=== PATIENT | male | born 1955 | race Caucasian/White ===

== ENCOUNTER 2020-08-04 18:49 | Observation (INO) | payer BC, SELFPAY ==
[2020-08-04] VITALS (23 sets, daily range): BP systolic 116–146; BP diastolic 59–111; PULSE 73–196; RESP 13–25; TEMP 36.3–36.7; O2SAT 94–100; BMI 31.4; BMI 34.3
--- NOTE | ~2020-08-04 | XR_ITS ---
EXAMINATION: XR chest 1V portable 08/04/2020 19:49 INDICATION: Chest pain and shortness of breath PROCEDURE: AP portable chest COMPARISON: No prior studies for comparison. FINDINGS: No focal pneumonia or edema. The cardiomediastinal silhouette is within normal limits. The re are no pleural effusions. There is no pneumothorax suspected. There is subsegmental atelectasis of the left mid and lower lung. IMPRESSION: 1: No subsegmental atelectasis left mid and lower lung. Reviewed, dictated and finalized at location A.
--- NOTE | 2020-08-04 18:50 | ECG_ITS ---
Measurements Intervals [place] Rate: 194 P: [place]: 0 QRS: -17 QRSD: 88 T: 28 QT: 221 QTc: 398 Interpretive Statements SUPRAVENTRICULAR TACHYCARDIA INCOMPLETE RIGHT BUNDLE BRANCH BLOCK BASELINE ARTIFACT- I, II, III, AVL, AVF ABNORMAL ECG Electronically Signed On 08-04-2020 20:04:27 CDT by Mik Jung D.O.
[2020-08-04] MEDS: ADENOSINE IV SOLN 6 MG/2 ML VIAL IV PUSH (19:08)
[2020-08-04] MEDS: ADENOSINE IV SOLN 6 MG/2 ML VIAL 12 MG IV PUSH (19:15)
--- NOTE | 2020-08-04 19:23 | ECG_ITS ---
Measurements Intervals [place] Rate: 99 P: 54 TN: 139 QRS: 4 QRSD: 88 T: 51 QT: 332 QTc: 428 Interpretive Statements SINUS RHYTHM EARLY PRECORDIAL R/S TRANSITION BORDERLINE ECG Electronically Signed On 08-04-2020 20:04:42 CDT by Mik Jung D.O.
--- NOTE | 2020-08-04 19:23 | ED.GENADULT ---
HPI - General Adult General Chief complaint: Chest Pain Stated complaint: think im having a heart attack Time Seen by Provider: 08/04/20 19:09 Source: RN notes reviewed History of Present Illness HPI narrative: Patient presents emergency department from home for feeling heart racing. Patient states symptoms began approximately 515 today. States that he had onset of feeling of his heart was racing with midsternal chest pressure and shortness of breath. He states the symptoms briefly resolved leave themselves and then came back again he denies any previous cardiac history he states he does have a history of hypertension is on metoprolol 50 mg twice a day and normally takes his evening dose around 9 or 10:00 denies any other symptoms at this time Related Data Allergies Allergy/AdvReac Type Severity Reaction Status Date / Time No Known Allergies Allergy Mild Unverified 06/11/08 17:41 Review of Systems Review of Systems: Narrative: Gen.: Denies fevers or chills ENT: Denies congestion Respiratory: Reports shortness of breath CV: See HPI GI: Denies abdominal pain nausea, emesis or diarrhea Musculoskeletal: Denies back pain or muscle pain Neuro: Denies numbness, tingling, weakness or focal weakness Skin: Denies rash Except as documented, all other systems reviewed and negative [facility] Past Medical History Medical History (Updated 08/04/20 @ 20:41 by Smith Ricardo DO) Hypertension Social History Social History (Updated 08/04/20 @ 19:26 by Smith Ricardo DO) Smoking status: Never smoker Exam Narrative: Exam Narrative: APPEARANCE: No acute distress, nontoxic, resting in bed EYES: EOMI HEENT: Normocephalic, atraumatic, OMM RESPIRATORY: No respiratory distress Clear to auscultation bilaterally with no rhonchi wheezing or rales. CARDIOVASCULAR: Tachycardic and regular without murmurs rubs or gallops. ABDOMINAL: Soft, nontender, nondistended, no rebound or guarding MUSCULOSKELETAl: Moves all extremities. No clubbing, cyanosis or edema. NEURO: Awake and alert. Following commands, speech normal, no focal deficits SKIN:: Warm, dry. No rashes lesions or abrasions PSYCHIATRIC: Normal affect/mood, Course Course Emergency Course: Procedure note: Patient presented SVT patient was placed on a court recording monitor crash cart at bedside. Patient was initially attempted to have Valsalva maneuver with no change in heart rate. Patient is then given adenosine 6 mg with no change in heart rate. That time patient was then given 12 mg of adenosine with conversion to sinus rhythm Patient normally takes metoprolol 50 mg twice a day due. Evening dose at 9 PM will give at this time All discussed Dr. Vuong presentation work-up agrees with admission at this time will order a.m. echo. Request patient start on Cardizem 30 mg every 8 hours Discussed with patient and family results of workup and diagnosis. Discussed need for admission. Patient and family understand and agree to current treatment plan Vital Signs Vital signs: Vital Signs Temperature 98.0 F 08/04/20 19:10 Pulse Rate 189 H 08/04/20 19:10 Respiratory Rate 18 08/04/20 19:10 Blood Pressure 117/90 08/04/20 19:10 Pulse Oximetry 100 08/04/20 19:10 Temperature 98.0 F 08/04/20 19:10 Pulse Rate 102 H 08/04/20 19:59 Respiratory Rate 13 08/04/20 19:20 Blood Pressure 145/85 H 08/04/20 19:20 Pulse Oximetry 100 08/04/20 19:20 Medical Decision Making Vital Signs Vital Signs: Vital Signs Temperature 98.0 F 08/04/20 19:10 Pulse Rate 189 H 08/04/20 19:10 Respiratory Rate 18 08/04/20 19:10 Blood Pressure 117/90 08/04/20 19:10 Pulse Oximetry 100 08/04/20 19:10 Temperature 98.0 F 08/04/20 19:10 Pulse Rate 102 H 08/04/20 19:59 Respiratory Rate 13 08/04/20 19:20 Blood Pressure 145/85 H 08/04/20 19:20 Pulse Oximetry 100 08/04/20 19:20 Lab Data Result diagrams: 08/04/20 19:22 08/04/20 19:23
[2020-08-04 19:32] LABS: Basophils Percent Auto 0.4 % (0.2-1.2); Eosinophils Absolute Auto 0.1 K/mm3 (0-0.3); Eosinophils Percent Auto 1.3 % (0-4.4); Hematocrit 49.7 % (42.0-52.0); Hemoglobin 16.5 g/dL (14.0-18.0); Immature Granulocyte Absolute 0.06 K/mm3 (0.00-0.031); Immature Granulocyte Percent A 0.6 % (0-0.5); Lymphocytes Absolute Auto 2.15 K/mm3 (0.9-3.2); Lymphocytes Percent Auto 20.1 % (18.3-44.2); Mean Corpuscular HGB Conc 33.2 g/dl (32-36); Mean Corpuscular Volume 93.2 fl (80-100); Mean Platelet Volume 10.4 fl (7.4-10.4); Monocytes Absolute Auto 1.8 K/mm3 (0.1-0.6); Monocytes Percent Auto 16.5 % (2.6-8.5); Neutrophils Absolute Auto 6.6 K/mm3 (1.3-6.7); Neutrophils Percent Auto 61.1 % (45.5-73.1); Platelet Count Result 304 k/mm3 (150-375); Red Blood Count 5.33 M/mm3 (4.6-6.20); Red Cell Distribution Width 12.4 % (11.5-14.5); White Blood Count 10.7 K/mm3 (4.5-10.0)
[2020-08-04 19:43] LABS: Prothrombin Time 13.5 Seconds (11.1-14.7)
[2020-08-04 19:44] LABS: Partial Thromboplastin Time 28.1 SECONDS (22.3-36.8)
[2020-08-04 19:49] LABS: Magnesium 1.8 mg/dL (1.6-2.3)
[2020-08-04 19:49] LABS: Anion Gap 10 mmol/L (8-16); Blood Urea Nitrogen 21 mg/dL (9-20); Calcium 8.6 mg/dL (8.4-10.2); Carbon Dioxide 26 mmol/L (22-30); Chloride 103 mmol/L (98-107); Estimated CRCL calculation 64 ml/min; Estimated Glomerular Filt Rate > 60; Glucose 154 mg/dL (75-110); Potassium 3.9 mmol/L (3.4-5.0); Sodium 139 mmol/L (137-145)
[2020-08-04] MEDS: METOPROLOL TARTRATE 50 MG TAB PO (19:59)
[2020-08-04 20:01] LABS: Troponin I < 0.012 ng/mL (0.000-0.034)
[2020-08-04] MEDS: dilTIAZem HCL 30 MG TABLET PO (21:44)
--- NOTE | 2020-08-04 22:43 | ADMGEN ---
This patient, Fernando Borges, was admitted to IMU Room 207-01 on 08/04/20 at 2205. Patient/family oriented to hospital policies and general routines including ID bracelet, bed and alarms, visiting hours, pain management, procedures, bathroom and other care routines, personal items, smoking policy, room service/diet, and visiting hours. Information on how to activate the Rapid Response Team has been discussed. Patient/Family are encouraged to report perceived risks to care and to ask questions if they do not understand what they are told or what they should do.
[2020-08-04 22:57] LABS: Troponin I 0.509 ng/mL (0.000-0.034)
[2020-08-05] VITALS (12 sets, daily range): BP systolic 129–146; BP diastolic 67–95; PULSE 64–78; RESP 16–18; TEMP 36.1–36.3; O2SAT 96–98
[2020-08-05] MEDS: MIRTAZAPINE 30 MG TABLET PO (01:07)
[2020-08-05 01:54] LABS: Troponin I 0.883 ng/mL (0.000-0.034)
[2020-08-05 05:05] LABS: Basophils Percent Auto 0.4 % (0.2-1.2); Eosinophils Absolute Auto 0.1 K/mm3 (0-0.3); Eosinophils Percent Auto 1.7 % (0-4.4); Hematocrit 42.9 % (42.0-52.0); Hemoglobin 14.1 g/dL (14.0-18.0); Immature Granulocyte Absolute 0.05 K/mm3 (0.00-0.031); Immature Granulocyte Percent A 0.6 % (0-0.5); Lymphocytes Absolute Auto 1.75 K/mm3 (0.9-3.2); Lymphocytes Percent Auto 22.3 % (18.3-44.2); Mean Corpuscular HGB Conc 32.9 g/dl (32-36); Mean Corpuscular Hemoglobin 30.2 pg (26-34); Mean Corpuscular Volume 91.9 fl (80-100); Mean Platelet Volume 10.7 fl (7.4-10.4); Monocytes Absolute Auto 1.5 K/mm3 (0.1-0.6); Monocytes Percent Auto 18.5 % (2.6-8.5); Neutrophils Absolute Auto 4.4 K/mm3 (1.3-6.7); Neutrophils Percent Auto 56.5 % (45.5-73.1); Platelet Count Result 226 k/mm3 (150-375); Red Blood Count 4.67 M/mm3 (4.6-6.20); Red Cell Distribution Width 12.6 % (11.5-14.5); White Blood Count 7.8 K/mm3 (4.5-10.0)
--- NOTE | 2020-08-05 06:00 | ECHO_ITS ---
Patient Info Name: Fernando Borges Age: 64 years : 1955 Gender: Male Ht: 66 in Wt: 212 lbs BSA: 2.15 m2 HR: 68 bpm BP: 129 / 71 mmHg Heart Rhythm: Sinus Rhythm Technical Quality: Good Exam Date: 08/05/2020 10:16 AM Exam Location: [facility] Patient Status: Outpatient Admit Date: 08/04/2020 Staff Ordering Physician: Smith Ricardo DO Community Facilitator: Shara Garcia RDCS Attending Provider: Kaela Vuong DO Referring Physician: Davion VACA; Exam Type: CA echo doppler color flow Study Info Indications - LV FUNCTION Complete two-dimensional, color flow and Doppler transthoracic echocardiogram is performed. Summary 1. Complete two-dimensional, color flow and Doppler transthoracic echocardiogram is performed. 2. Left ventricular chamber dimension is normal. 3. Left ventricular systolic function is normal, estimated at 60-65%. 4. There is trace mitral valve regurgitation. Left Ventricle Left ventricular chamber dimension is normal. Left ventricular systolic function is normal, estimated at 60-65%. The left ventricular diastolic function is normal. Right Ventricle Right ventricular chamber dimension is normal. Left Atria Left atrial chamber dimension is normal. Right Atria Right atrial chamber dimension is normal. Aortic Valve The aortic valve is normal. Pulmonic Valve The pulmonic valve is normal. Mitral Valve The mitral valve has normal leaflets. There is trace mitral valve regurgitation. Tricuspid Valve The tricuspid valve leaflets are normal. Pericardium/Pleural The pericardium appears normal. Aorta The aortic root size at the sinus of Valsalva is normal. Left Ventricular Outflow Tract Name Value Normal LVOT 2D LVOT Diameter 1.9 cm LVOT Doppler LVOT Peak Gradient 5 mmHg LVOT Mean Gradient 3 mmHg LVOT VTI 22 cm LVOT VTI/AV VTI Ratio 0.9 LVOT Stroke Volume 62 ml LVOT CO 4.4 l/min LVOT CI 2.1 l/min/m2 Pulmonic Valve Name Value Normal RVOT Doppler RVOT Peak Gradient 3 mmHg PV Doppler PV Peak Gradient 3 mmHg Mitral Valve Name Value Normal MV Doppler MV Decel Gos[place] 546 cm/s2 MV PHT 61 ms MV Area (PHT) 3.6 cm2 4.0-5.
[2020-08-05] MEDS: dilTIAZem HCL 30 MG TABLET PO (06:04)
[2020-08-05] MEDS: FLUTICASONE PROPIONATE 0.05% NA SPR 16 GM BTL (*BKC) 2 SPRAY NASAL (09:29)
[2020-08-05] MEDS: ESCITALOPRAM OXALATE 10 MG TABLET 20 MG PO (09:30)
[2020-08-05] MEDS: ASCORBIC ACID 500 MG TABLET 1000 MG PO (09:30)
[2020-08-05] MEDS: METOPROLOL SUCCINATE EXT REL 50 MG TABCR PO (09:30)
[2020-08-05] MEDS: LORATADINE 10 MG TABLET PO (09:30)
[2020-08-05] MEDS: VITAMIN B COMPLEX CAPSULE 1 CAP PO (09:30)
[2020-08-05] MEDS: ATORVASTATIN 40 MG TABLET PO (09:30)
--- NOTE | 2020-08-05 12:42 | PM.CNCAR ---
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 At this point I would agree with starting him on diltiazem. For his convenience I am going to prescribe a long-acting diltiazem 180 mg per day and stop his metoprolol. He should be stable for discharge at this time I will follow him up in the office and depending on the response to diltiazem whether he does or does not have any recurrences I will consider elective electrophysiology referral to consider ablating this if need be. At this point no other cardiac workup in the hospital is necessary and he can be discharged in my opinion Carlos Dang MD [facility] History of Present Illness History of Present Illness Consult date/time: 08/05/20 12:42 Reason For Visit: SVT Narrative: This is a very pleasant 64-year-old man that I am seeing at the request of the hospitalist for assistance with the evaluation and management of supraventricular tachycardia. This is a man who states he has never been found her known to have any cardiac problems in the past. He is a gentleman with longstanding hypertension which for which she has been on metoprolol therapy with good results. His PCP is down in the [facility]. Patient states that yesterday when he was in his usual state of good health at home he suddenly noticed the onset of distress with tachycardia. He has never had this sort of sensation in the past. After short time he recognized this as a serious matter and came to the emergency room for evaluation. In the emergency room he was hemodynamically stable but very tachycardic his ECG showed a regular narrow QRS tachycardia and no significant ST or T-wave abnormalities. He was treated with adenosine 1st 6 mg and then with 12 mg which terminated his tachycardia and restored to sinus rhythm. He was then admitted to the hospital for further evaluation/observation and management. He has been in sinus rhythm since admission last evening and has not had any additional complaints. A modest dose of short-acting diltiazem has been prescribed by the hospitalist. Arm he is usually a relatively healthy and he does not exercise regularly for fitness but does walk for fitness a couple of times a week and has not notice that physical exertion is causing any sense of undue dyspnea chest pain orthopnea or PND. He had an echocardiogram done this morning which I looked at a short time ago and is essentially a normal study except for a trivial amount of mitral valve regurgitation. Review of Systems Constitutional: Constitutional: Reports no additional constitutional complaints Eyes: Eyes: Reports no additional eye complaints ENT: Reports system reviewed and no additional complaints, except as documented Cardiovascular: Cardiovascular: Reports as per HPI and Reports palpitations Respiratory: Respiratory: Reports no additional respiratory complaints Gastrointestinal: Gastrointestinal: Reports no additional gastrointestinal complaints Musculoskeletal: Musculoskeletal: Reports no additional musculoskeletal complaints Neurologic: Reports system reviewed and no additional complaints, except as documented Psychiatric: Psychiatric: Reports no additional psychiatric complaints Endocrine: Endocrine: Reports no additional endocrine complaints Hematologic/Lymphatic: Hematologic/Lymphatic: Reports no additional hematologic/lymphatic complaints Allergic/Immunologic: Allergic/Immunologic: Reports no additional allergic/immunologic complaints [facility] Past Medical History Medical History (Updated 08/04/20 @ 20:41 by Smith Ricardo DO) Hypertension Family History Family History (R
--- NOTE | 2020-08-05 15:48 | PM.DS ---
DS: Admitting Diagnosis Admitting Diagnosis Admitting Diagnosis: Supraventricular tachycardia DS: Discharge Diagnosis Discharge Diagnosis (1) Supraventricular tachycardia: Code(s): I47.1 - Supraventricular tachycardia Status: Acute DS: Summary Hospital Course Reason for hospitalization: Supraventricular tachycardia Hospital Course: This is a 64-year-old man without previous history of cardiac problems. He has longstanding hypertension for which she was prescribed metoprolol. He entered the hospital last night when he came to the emergency room with the onset of palpitations which occurred abruptly at home. He has never had any arrhythmias in the past. He was found to be in a rapid narrow QRS tachycardia consistent with SVT. He was treated with adenosine in the emergency room and converted to sinus rhythm and became asymptomatic. It was determined that he should be admitted to the hospital and observed overnight. He had no further arrhythmias. He was placed on a modest dose of oral diltiazem. Patient had an echocardiogram done in the hospital that was unremarkable other than for a trivial amount of mitral valve regurgitation. I recommended transiting the patient from metoprolol to oral diltiazem for treating his hypertension and also to reduce the propensity for SVT recurrences in the future. Patient is clinically stable and otherwise asymptomatic and appears to be a good candidate for discharge today. He will be discharged given an appointment to see me in the office for follow-up of this in 1 month. Status at Discharge Functional status at discharge: independent ambulation Overall status at discharge: patient is back to baseline Time Spent with Patient Time attestation: Total time spent providing and/or coordinating discharge services: Time spent: Less than 30 minutes Exam Const: General: comfortable and no acute distress HENMT: Mouth: Yes moist mucous membranes Eyes: Sclera: sclerae normal Pupils: Equal, round and reactive pupils present Neck: Neck: supple and no JVD Other: No carotid bruits audible carotid pulses are normal bilaterally Resp: Effort & Inspection: normal respiratory effort Auscultation: clear to auscultation bilaterally Cardio: Rate: regular rate Rhythm: regular rhythm Other: PMI is nondisplaced no audible murmur gallop or rub GI: GI Palp: Yes Soft to palpation Auscultation: normal bowel sounds Skin: General skin exam: normal color Extrem: General: normal to inspection DS: Data Data Completed and Pending Labs on day of discharge: Labs from last 24 hours 04/08/05/20 08/04/20 04:24 01:21 22:20 WBC 7.8 RBC 4.67 Hgb 14.1 Hct 42.9 MCV 91.9 MCH 30.2 MCHC 32.9 RDW 12.6 Plt Count 226 MPV 10.7 H Immature Gran % (Auto) 0.6 H Neut % (Auto) 56.5 Lymph % (Auto) 22.3 [place] % (Auto) 18.5 H Eos % (Auto) 1.7 Baso % (Auto) 0.4 Lymph # (Auto) 1.75 [place] # (Auto) 1.5 H Eos # (Auto) 0.1 Baso # (Auto) 0.0 Abs Immat Gran (auto) 0.05 H Absolute Neuts (auto) 4.4 Absolute Nucleated RBC 0.0 Nucleated RBC % 0.0 PT INR APTT Sodium Potassium Chloride Carbon Dioxide Anion Gap BUN Creatinine Estim Creat Clear Calc Estimated GFR Glucose Calcium Magnesium Troponin I 0.883 H* D 0.509 H* D 08/04/20 08/04/20 08/04/20 19:23 19:22 19:22 WBC RBC Hgb Hct MCV MCH MCHC RDW Plt Count MPV Immature Gran % (Auto) Neut % (Auto) Lymph % (Auto) [place] % (Auto) Eos % (Auto) Baso % (Auto) Lymph # (Auto) [place] # (Auto) Eos # (Auto) Baso # (Auto) Abs Immat Gran (auto) Absolute Neuts (auto) Absolute Nucleated RBC Nucleated RBC % PT 13.5 INR 1.0 APTT 28.1 Sodium 139 Potassium 3.9 Chloride 103 Carbon Dioxide 26 Anion Gap 10 BUN 21 H Creatinine 1.20 Estim Cr
== END 2020-08-05 17:04 | disposition home or self-care (01) ==
LOC: ANHED 20:41 → ANHIMU 08-05 00:55
PROVIDERS: Emergency Medicine; Admitting Provider Internal Medicine Cardiovascular Disease; Emergency Provider Emergency Medicine; Visit Provider Specialist
DX: I47.1 Supraventricular tachycardia (principal); R07.9 Chest pain, unspecified; R06.02 Shortness of breath; I10 Essential (primary) hypertension
CPT/HCPCS: 36415; 71045; 80048; 83735; 84484; 85025; 85610; 85730; 93005; 93306; 96374; 99285; A9270; G0378; J0153; J0171; J7030